=== PATIENT | male | born 1955 | race Caucasian/White ===

== ENCOUNTER → 2019-11-11 11:49 | Outpatient (CLI) | payer OTHER, SELFPAY ==
[2019-11-11 12:47] LABS: Anion Gap 11.7 mEq/L (5-15); Blood Urea Nitrogen 23 mg/dL (7-18); Calcium 8.9 mg/dL (8.5-10.1); Carbon Dioxide 30 mmol/L (21.0-32.0); Chloride 102 mmol/L (98-107); Creatinine,Serum 1.13 mg/dL (0.70-1.30); Estimated Glomerular Filt Rate 65 ml/min (>60); GFR (African American) 79 ML/MIN (>60); Glucose 141 mg/dL (74-106); Potassium 3.7 mmoL/L (3.5-5.1); Sodium 140 mmol/L (136-145)
== END ==
PROVIDERS: Visit Provider Internal Medicine Cardiovascular Disease
DX: I11.9 Hypertensive heart disease without heart failure (principal); I25.10 Atherosclerotic heart disease of native coronary artery without angina pectoris; R60.0 Localized edema
CPT/HCPCS: 36415; 80048